=== PATIENT | male | born 1985 | race Caucasian/White ===

== ENCOUNTER 2017-12-23 06:38 | Emergency (ER) | payer OTHER, SELFPAY ==
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
== END 2017-12-23 07:45 | disposition home or self-care (01) ==
LOC: ERS 06:38
DX: S16.1XXA Strain of muscle, fascia and tendon at neck level, initial encounter (principal); F41.9 Anxiety disorder, unspecified; F32.9 Major depressive disorder, single episode, unspecified; Z79.899 Other long term (current) drug therapy; V79.9XXA Bus occupant (driver) (passenger) injured in unspecified traffic accident, initial encounter
CPT/HCPCS: 72125

== ENCOUNTER 2021-10-05 22:22 | Emergency (ER) | payer SELFPAY, OTHER | END 2021-10-06 02:15 | disposition home or self-care (01) | LOC: ERS 22:22 | DX: U07.1 COVID-19 (principal) | CPT/HCPCS: 99283; U0003; U0005 ==

== ENCOUNTER 2021-12-29 07:13 | Emergency (ER) | payer OTHER, SELFPAY ==
[2021-12-29] MEDS ORDERED: HYDROcodone/Acetaminophen 10/325 mg Tablet ONE (08:30)
== END 2021-12-29 08:30 | disposition home or self-care (01) ==
LOC: ERS 07:13
DX: S93.401A Sprain of unspecified ligament of right ankle, initial encounter (principal); X50.1XXA Overexertion from prolonged static or awkward postures, initial encounter